=== PATIENT | female | born 1960 | race American Indian/Alaskan Native ===

== ENCOUNTER 2020-11-03 10:08 | Outpatient (CLI) | payer OTHER ==
--- NOTE | 2020-11-03 11:55 | Cat Scan Report ---
The following report is a radiology over-read of a CT calcium scoring study. CT calcium scoring study is reported separately by Cardiology. CT CALCIUM SCORING OVER-READ HISTORY: Chest pain, asthma. TECHNIQUE: Limited CT through the heart and lung bases. All CT scans at this location are performed using CT dos e reduction for ALARA by means of automated exposure control. COMPARISON: None available. FINDINGS: VISUALIZED LUNGS / PLEURA: No significant abnormality. HEART / MEDIASTINUM: No significant abnormality. SKELETAL SYSTEM: No significant abnormality. ADDITIONAL FINDINGS: Scattered liver hypodensities measuring up to 1.5 cm in the superior liver cons istent with cysts. IMPRESSION: Few scattered liver cysts. Otherwise, no significant extracardiac findings. Signer Name: Johnson Hurst Jr, MD Signed: 11/03/2020 11:51 AM Workstation Name: [id number]
--- NOTE | 2020-11-04 04:28 | CT Calcium Scoring Report ---
Coronary Calcium Score Date of service: 11/04/20 Procedure: High-resolution computed tomographic imaging of the chest was performed on11/03/20 with particular attention paid to the coronary arteries. Images from the examination were analyzed for the presence and extent of coronary artery calcification, using coronary calcium quantification software. The patient tolerated the procedure well and there were no complications. The results of the coronary calcification analysis are provided below. The patient scores are compared with published data related to scores for people of a similar age and the same gender. - Findings Total Agatson Score: 0
== END 2020-11-03 10:09 | disposition home or self-care (01) ==
LOC: CT 10:08
PROVIDERS: ATTEND Internal Medicine Cardiovascular Disease
DX: Z01.818 Encounter for other preprocedural examination (principal); R07.9 Chest pain, unspecified; J45.909 Unspecified asthma, uncomplicated; R94.31 Abnormal electrocardiogram [ECG] [EKG]; Z87.891 Personal history of nicotine dependence; K76.89 Other specified diseases of liver
CPT/HCPCS: 75571